=== PATIENT | female | born 1945 | race Caucasian/White ===

== ENCOUNTER 2016-12-19 06:13 | Day surgery (SDC) | payer MEDICARE, MEDICAID ==
[~2016-12-19 06:13] MED LIST: AMBIEN10 MG PO; BREO ELLIPTA 21 EACH; LISINOPRIL-HCTZ1 T13 PO; NEURONTIN 300300 MG PO; NEXIUM20 MG; NORCO 10/325 TA1 TA1 PO; OMEPRAZOLE20 M1 PO; PRILOSEC10 M1 PO; PRILOSEC20 MG PO; ROBAXIN-750750 MG PO; SOMA350 MG PO; SYMBICORT 16010.2 GM INH; SYNTHROID75 MCG PO; TOPROL XL50 MG PO; ULTRAM50 MG PO; VALIUM10 MG PO; VENTOLIN HFA18 GM INH; VISTARIL50 MG PO; ZOCOR20 MG PO
[2016-12-19 07:06] LABS: HEMATOCRIT 38.9 % (36.0-48.0); HEMOGLOBIN 13.4 g/dL (12-16); MCH 32.1 pg (26.0-34.0); MCHC 34.4 g/dL (31.0-37.0); MCV 93.3 fL (80.0-100.0); MEAN PLATELET VOLUME 10.7 fL (7.4-10.4); RBC 4.17 10x6/uL (4.00-5.40); RDW 14.2 % (11.5-14.5); WBC 13.6 10x3/uL (4.8-10.8)
[2016-12-19] MEDS ORDERED: VOLTAREN100 GM TOPICAL (07:51)
[2016-12-19 07:53] VITALS: BP 103/66; BMI 29.1
--- NOTE | 2016-12-19 09:23 | NUR ---
0915 BACK FROM EGD. ALERT AWAKE AND VERBAL. RESP NONLABORED. SAT 94%. HOB ELEVATED C/L IN REACH.
--- NOTE | 2016-12-19 09:58 | NUR ---
0930 FULL LIQUIDS SERVED.
--- NOTE | 2016-12-19 09:58 | NUR ---
0940 REPORT TO LARON BRYAN R.N.
--- NOTE | 2016-12-19 10:59 | NUR ---
1005--IV DC'D. TAY MOSS 1015--DISCHARGE INSTRUCTIONS GIVEN, PT VERBALIZES UNDERSTANDING. PT OF UNIT VIA WC. TAY MOSS
--- NOTE | 2016-12-24 09:40 | OP ---
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 PROCEDURE: Esophagogastroduodenoscopy with antral and distal esophageal biopsies. SURGEON: Pavan Chavez MD HARDNESS INSPECTOR: None. BLOOD LOSS: Minimal. ANESTHESIA: IV sedation. COMPLICATIONS: None. The risks, possible complications, and alternatives to the procedure were explained to the patient. She elects to proceed. The discussion specifically included, but was not limited to, bleeding requiring emergency reoperation, infection, and esophageal perforation. ENDOSCOPIC COURSE: The patient was conveyed to the endoscopy suite electively on 12/18/2016. IV sedation was induced by the anesthesia staff. A bite block was inserted. A gastroscope was inserted into the mouth. It was advanced easily into the hypopharynx. The esophagus was easily intubated as were the stomach and duodenum. Upon withdrawal, retroflexed and angulus views were obtained. Antral biopsies were obtained. Distal esophageal biopsies were obtained. The endoscope was then withdrawn under direct vision. I found no etiology for the patient's epigastric abdominal pain. I would like for her to continue on her proton pump inhibitors. I will see her in the office in 2-3 weeks to review the results of the biopsies. TRANSINT:[id number] Voice Confirmation ID: [id number] DOCUMENT ID: [id number] CC: PAVAN Ojeda MD at 0940 CC: BRAYDEN WADDELL [id number] DICTATION DATE: 12/19/16 0909 WEB DEVELOPMENT INSTRUCTOR: 12/19/16 1106 [facility] 12/19/[address] [address]
--- NOTE | 2016-12-24 09:40 | HP ---
PATIENT: TOVA MARTINES MEDICAL RECORD: [id number] ACCOUNT: [id number] [facility] AD[facility] DATE: 12/19/16 HISTORY AND PHYSICAL EXAMINATION CHIEF COMPLAINT: Fajardo esophagus. HISTORY OF PRESENT ILLNESS: The patient is here to undergo surveillance upper endoscopy due to a history of Fajardo esophagus. She has had some dysphagia, some reflux as well. The risks, possible complications, and alternatives to the procedure were explained to the patient. She elects to proceed. ALLERGIES: BENADRYL, CELEBREX, METHYLENE CHLORIDE, TETRACYCLINE, AND PENICILLIN. HOME MEDICINES: Albuterol, lisinopril, metoprolol, Zocor, topical Voltaren, gabapentin, Ambien, Vistaril, Symbicort, Nexium, as well as omeprazole, hydrocodone. SOCIAL HISTORY: She is a smoker. I have advised her to quit smoking. PAST MEDICAL AND SURGICAL HISTORY: Asthma, hypertension, COPD, gastroesophageal reflux, arthritis, history of hysterectomy, hypercholesterolemia, gastroesophageal reflux, history of colon polyps, hypertension, sleep apnea, on CPAP, history of 5 ankle surgeries, history of hysterectomy, history of cholecystectomy, history of hernia surgery. REVIEW OF SYSTEMS: Currently without fever. Review of systems is negative other than as is described above. PHYSICAL EXAMINATION: GENERAL: The patient does not appear acutely ill. She does appear chronically ill. The entire physical examination was performed in the presence of a female nurse. VITAL SIGNS: Reviewed. HEAD: External ears appear normal. EYES: Extraocular movements are intact. NECK: Trachea is midline. CHEST: No intercostal retractions. PULMONARY: Nonlabored. No stridor. IMPRESSION: History of Fajardo esophagus, for surveillance upper endoscopy. PLAN: Surveillance upper endoscopy with biopsies. TRANSINT:[id number] Voice Confirmation ID: [id number] DOCUMENT ID: [id number] CC: Nan Payton HISTORY AND PHYSICAL [id number] TOVA MARTINES ROBERT MD at 0940 CC: [id number] DICTATION DATE: 12/19/16 0838 GUMMING MACHINE OPERATOR: 12/19/16 1005 [facility] 12/19/16 [place] [address]
== END 2016-12-19 10:15 | disposition home or self-care (01) ==
LOC: D.OPS 06:13
PROVIDERS: Internal Medicine Gastroenterology
DX: K29.50 Unspecified chronic gastritis without bleeding (principal); K21.0 Gastro-esophageal reflux disease with esophagitis; J44.9 Chronic obstructive pulmonary disease, unspecified; F17.200 Nicotine dependence, unspecified, uncomplicated; I10 Essential (primary) hypertension; Z86.010 Personal history of colon polyps; G47.30 Sleep apnea, unspecified; Z79.891 Long term (current) use of opiate analgesic; Z79.899 Other long term (current) drug therapy; Z88.1 Allergy status to other antibiotic agents; Z88.8 Allergy status to other drugs, medicaments and biological substances; Z88.0 Allergy status to penicillin; Z01.812 Encounter for preprocedural laboratory examination

== ENCOUNTER 2019-01-26 05:48 | Day surgery (SDC) | payer MEDICARE, MEDICAID ==
[~2019-01-26] VITALS: Ht 167.6 cm; Wt 81.8 kg
[~2019-01-26 05:48] MED LIST changes: +VOLTAREN100 GM TOPICAL
[2019-01-26 06:21] LABS: HEMATOCRIT 36.3 % (36.0-48.0); HEMOGLOBIN 12.4 g/dL (12-16); MCH 31.6 pg (26.0-34.0); MCHC 34.2 g/dL (31.0-37.0); MCV 92.6 fL (80.0-100.0); MEAN PLATELET VOLUME 9.9 fL (7.4-10.4); RBC 3.92 10x6/uL (4.00-5.40); RDW 15.6 % (11.5-14.5); WBC 14.9 10x3/uL (4.8-10.8)
[2019-01-26 06:59] LABS: ANION GAP 16.6 mmol/L (8-16); CALCIUM 9.3 mg/dL (8.5-10.1); CARBON DIOXIDE 26.1 mmol/L (21.0-32.0); CREATININE - SERUM 1.4 mg/dL (0.6-1.3); POTASSIUM - SERUM 3.7 mmol/L (3.5-5.1)
[2019-01-26] MEDS ORDERED: OMEPRAZOLE20 M1 PO (07:25)
[2019-01-26] MEDS ORDERED: HYDROCODON-ACE1 EA10 PO (07:30)
[2019-01-26 07:34] VITALS: BP 124/55; Ht 167.6 cm; Wt 81.8 kg
--- NOTE | 2019-01-26 13:21 | NUR ---
DC INSTRUCTIONS GIVEN TO PT/FAMILY. STATE UNDERSTANDING. DC'D IV CATH FULLY INTACT
--- NOTE | 2019-01-26 13:23 | NUR ---
PT LEFT UNIT VIA WC AT 1255
--- NOTE | 2019-01-29 16:57 | OP ---
PATIENT NAME: TOVA MARTINES MEDICAL RECORD: [id number] :47 LOCATION:D.OPS ADMISSION DATE: SURGEON: PAVAN CHAVEZ MD DATE OF OPERATION: 01/26/2019 PREOPERATIVE DIAGNOSES: 1. History of Fajardo's esophagus, in need of a surveillance upper endoscopy with biopsies. 2. History of colon polyps, in need of surveillance colonoscopy. 3. Dysphagia, which has responded to balloon dilation in the past. POSTOPERATIVE DIAGNOSES: 1. History of Fajardo's esophagus, in need of a surveillance upper endoscopy with biopsies. 2. History of colon polyps, in need of surveillance colonoscopy. 3. Dysphagia, which has responded to balloon dilation in the past. 4. Mild pangastritis. 5. 14 colorectal polyps, all sessile and all ranging in size from 5 mm in diameter to 1.3 cm in diameter. 6. Glandular material within the anus, which is going to require an intraoperative excisional biopsy. PROCEDURES: 1. Esophagogastroduodenoscopy with antral and distal esophageal biopsies. 2. Balloon dilation of esophagus to 60-Barbadian. 3. Total colonoscopy to cecum. 4. Hot biopsy forceps polypectomies times 2. 5. Ablation of 11 polyps utilizing the argon plasma crawler dragline operator. SURGEON: Pavan Chavez MD PARTS CONTROL CLERK: None. BLOOD LOSS: Minimal. ANESTHESIA: IV sedation. COMPLICATIONS: None. This procedure was made more difficult due to the fact she is a "belly breather" and it was hard to hit polypoid targets with all the respiratory motion and abdominal motion. During her next endoscopy, it is going to be necessary to do her under general anesthesia where she can receive a paralytic in the operating room. DESCRIPTION OF THE PROCEDURE: The patient was conveyed to endoscopy suite electively on 01/26/2019. IV sedation was induced by the anesthesia staff. It was necessary to have the anesthesia staff present during the procedure due to medication tolerance and due to the need for airway adjustment during the procedure. IV sedation was induced by the anesthesia staff. A bite block was inserted. A gastroscope was inserted into the mouth. It advanced easily into the hypopharynx. The esophagus was easily intubated as were the stomach and OPERATIVE REPORT [id number] TOVA MARTINES duodenum. Upon withdrawal, retroflexed and angulus views were obtained. Antral biopsies were obtained. I then withdrew into the cardia of the stomach. I advanced through the catheter balloon. I then sequentially dilated the entire length of the esophagus to 60-Barbadian. The balloon dilator was removed. I then re-endoscoped the patient's esophagus and stomach. There had been no evidence of false passage or perforation. Multiple random biopsies were obtained at the EG junction. This is for surveillance of her Fajardo's esophagus. The endoscope was then withdrawn under direct vision. The patient was turned 180 degrees and placed in the Nguyen position. A digital rectal examination was performed. A colonoscope was inserted through the anus. I did identify some glandular tissue and this is somewhat worrisome and this is going to require anal biopsies under general anesthesia. The colonoscope was advanced to the cecum with difficulty. I slowly withdrew the endoscope. I irrigated and aspirated extensively. A combination of normal imaging and narrow band imaging was utilized. Two hot biopsy forceps polypectomies were performed. There were other smaller sessile polyps, which were not biopsied. These 11 polyps were thoroughly ablated with the argon plasma crawler dragline operator. A retroflexed view was obtained in the rectum. I then unretroflexed the scope and removed it under direct vision. The pullback was greater than a 30-minute pullback. I will see her in the office in 2-3 weeks. My plan is for re-colonoscopy and re-EGD in 2 years under general anesthesia in the operating room. Sometime this year, she is going to require anal biopsies, however. TRANSINT:[id number] Voice Confirmation ID: [id number] DOCUMENT ID: [id number] PAVAN CHAVEZ MD at 1655 CC: [id number] DICTATION DATE: 01/26/19 1031 MARKETING DEVELOPER: 01/26/19 1245 [facility] 01/26/19 [id number] [place] [address]
--- NOTE | 2019-01-29 16:57 | HP ---
PATIENT: TOVA MARTINES MEDICAL RECORD: [id number] ACCOUNT: [id number] [facility] 47 ADMISSION DATE: 01/26/19 PCP: BRAYDEN WADDELL HISTORY AND PHYSICAL EXAMINATION CHIEF COMPLAINT: Fajardo's esophagus, in need of surveillance upper endoscopy. HISTORY OF PRESENT ILLNESS: The patient has a history of Fajardo's and is here for surveillance upper endoscopy with biopsies. She also has a history of colon polyps, so she will undergo surveillance colonoscopy. The patient does have dysphagia and I am going to plan for a balloon dilation of the esophagus, which has helped with her dysphagia in the past. She has recurrent dysphagia. The risks, possible complications and alternatives to the procedure were explained to the patient. She elects to proceed. MEDICATIONS: Home medicines are reviewed. I note no medicines which are blood thinners. ALLERGIES: NUMEROUS AND I HAVE NOTED THOSE WELL. SOCIAL HISTORY: She is a smoker. PAST MEDICAL AND SURGICAL HISTORY: Asthma, she is on a daily inhaler; COPD; sleep apnea; hypertension; gastroesophageal reflux. PHYSICAL EXAMINATION: GENERAL: The patient does not appear acutely ill. She does appear chronically ill. VITAL SIGNS: Reviewed. EARS: External ears appear normal. EYES: Extraocular movements are intact. NECK: Trachea is midline. CHEST: No intercostal retractions. PULMONARY: Nonlabored, no stridor. ABDOMEN: No peritonitis with movement. IMPRESSION: 1. Fajardo's esophagus, in need of surveillance upper endoscopy with biopsies. 2. History of colon polyps, in need of a surveillance colonoscopy. 3. Dysphagia, for balloon dilation. PLAN: As described above. TRANSINT:[id number] Voice Confirmation ID: [id number] DOCUMENT ID: [id number] HISTORY AND PHYSICAL [id number] TOVA MARTINES, SUZANNE GONZALEZ at 1657 CC: [id number] DICTATION DATE: 01/26/19 0843 FISH DRESSING MACHINE FEEDER: 01/26/19 1045 [facility] 01/26/19 [address] [place] [address]
== END 2019-01-26 12:55 | disposition home or self-care (01) ==
LOC: D.OPS 05:48
PROVIDERS: Anesthesiology; ATTEND Surgery
DX: Z86.010 Personal history of colon polyps (principal); R13.10 Dysphagia, unspecified; K29.60 Other gastritis without bleeding; K63.5 Polyp of colon

== ENCOUNTER → 2019-04-02 09:22 | Outpatient (CLI) | payer MEDICARE, MEDICAID ==
[2019-03-12 09:12] VITALS: BMI 29.1
[~2019-04-02 09:22] MED LIST changes: +ANORO ELLIPTA1 EACH INH; +HYDROCODON-ACE1 EA10 PO; +KENALOG IN ORABA5 GM TOPICAL
== END | disposition home or self-care (01) ==
LOC: D.CT 09:22
PROVIDERS: ATTEND Surgery
DX: R10.30 Lower abdominal pain, unspecified (principal)

== ENCOUNTER → 2019-04-23 12:46 | Outpatient (CLI) | payer MEDICARE, MEDICAID ==
[2019-03-12 09:12] VITALS: BMI 29.1
== END | disposition home or self-care (01) ==
LOC: D.LAB 12:46
PROVIDERS: ATTEND Surgery
DX: N28.89 Other specified disorders of kidney and ureter (principal)

== ENCOUNTER → 2019-08-19 08:50 | Outpatient (CLI) | payer MEDICARE, MEDICAID ==
[2019-03-12 09:12] VITALS: BMI 29.1
== END | disposition home or self-care (01) ==
LOC: D.CT 08:50
PROVIDERS: ATTEND Surgery
DX: E27.9 Disorder of adrenal gland, unspecified (principal)

== ENCOUNTER → 2020-04-20 11:14 | Outpatient (CLI) | payer MEDICARE, MEDICAID ==
[2019-03-12 09:12] VITALS: BMI 29.1
== END | disposition home or self-care (01) ==
LOC: D.CT 11:14
PROVIDERS: ATTEND Surgery
DX: C79.71 Secondary malignant neoplasm of right adrenal gland (principal)